=== PATIENT | female | born 1980 | race Hispanic/Latino ===

== ENCOUNTER 2025-08-30 08:04 | Emergency (ER) | payer OTHER, SELFPAY ==
[2025-08-30 08:22] LABS: #Basophils 0.1 thou/uL (0.0-0.2); #Eosinophils 0.1 thou/uL (0.0-0.7); #Lymphocytes 2.0 thou/uL (1.20-3.40); #Monocytes 0.4 thou/uL (0.11-0.59); #Neutrophils 4.5 thou/uL (1.40-6.50); %Basophils 1.0 % (0.0-1.0); %Eosinophils 1.1 % (0.0-10.0); %Lymphocytes 27.7 % (21.0-51.0); %Monocytes 6.2 % (0.0-10.0); %Neutrophils 64.0 % (42.0-75.0); Hematocrit 41.4 % (36.0-47.0); Hemoglobin 14.6 g/dL (12.0-16.0); Mean Corpuscular Hemoglobin 29.1 pg (27.0-31.0); Mean Corpuscular Volume 82.5 fl (78.0-98.0); Platelet Count 248 10x3/uL (130-400); Red Blood Cell (RBC) Count 5.02 mill/uL (4.20-5.40); White Blood Cell (WBC) Count 7.0 10x3/uL (4.8-10.8)
[2025-08-30 08:34] LABS: INR-International Normal Ratio 1.0; Prothrombin Time 13.2 sec (12.0-14.7)
[2025-08-30 08:35] LABS: PTT 27.6 sec (22.9-36.1)
[2025-08-30 08:41] LABS: Troponin I Less than 0.010 ng/mL (< 0.028)
[2025-08-30 08:45] LABS: ALT (SGPT) 15 U/L (Less than 34); AST (SGOT) 24 U/L (11-34); Albumin 4.1 g/dL (3.1-4.5); Alkaline Phosphatase 97 U/L (40-110); Anion Gap 17 mmol/L (10-20); BUN (Urea Nitrogen) 6 mg/dL (7.0-18.7); Bilirubin, Total 0.4 mg/dL (0.3-1.2); CK (CPK) 80 U/L (29-168); Calc. Creatinine Clearance 0 mL/min (70-130); Calcium 8.9 mg/dL (7.8-10.44); Carbon Dioxide 20 mmol/L (22-29); Chloride 106 mmol/L (98-107); Globulin 3.1 g/dL (2.4-3.5); Glucose 89 mg/dL (70-105); Potassium 3.7 mmol/L (3.5-5.1); Sodium 139 mmol/L (136-145)
[2025-08-30] MEDS ORDERED: Iopamidol 370 76% 100 ML VIAL ONE (09:00)
[2025-08-30] MEDS ORDERED: Aspirin Chewable 81 MG TAB ONE (09:18)
== END 2025-08-30 12:26 | disposition short-term general hospital (02) ==
LOC: NAV ERS 08:04
DX: I63.9 Cerebral infarction, unspecified (principal); I10 Essential (primary) hypertension; R29.700 NIHSS score 0; Z79.899 Other long term (current) drug therapy
CPT/HCPCS: 36416; 70450; 70496; 70498; 80053; 82550; 84484; 85025; 85610; 85730; 93005; 94760; Q9967